=== PATIENT | male | born 1985 | race Caucasian/White ===

== ENCOUNTER 2017-08-07 04:35 | Emergency (ER) | payer SELFPAY ==
[~2017-08-07] VITALS: Ht 177.8 cm; Wt 80.0 kg
[2017-08-07 04:38] VITALS: BP 152/84; PULSE 81; RESP 16; TEMP 98.8; O2SAT 97
--- NOTE | 2017-08-07 05:02 | PD ---
HPI Chief Complaint: ENT Complaint Time Seen by Provider: 04:51 Travel History International Travel<30 days: No Contact w/Intl Traveler<30days: No Traveled to known affect area: No History of Present Illness HPI Patient comes in complaining of sore throat 3 days. Patient reports fever in the beginning has since resolved. Patient states over the past 2 days he's had multiple loose stools that are nonbloody. Patient denies any known sick contacts. Patient using [id number] cold and flu medication as well as drinking hot tea with no improvement of symptoms. Pain is worse with swallowing. Describes pain as burning like in nature. Denies any radiation of the pain. PFSH Past Medical History Medical History: Denies Significant Hx Social History Tobacco Use: No Substance Use: No Allergies-Medications (Allergen,Severity, Reaction): Coded Allergies: No Known Allergies (Unverified , 08/07/17) Reported Meds & Prescriptions Reported Meds & Active Scripts Active Prednisone 20 Mg Tab 20 Mg PO BID 4 Days Review of Systems Except as stated in HPI: all other systems reviewed are Neg Physical Exam Narrative GENERAL: Well-developed, well nourished, in no acute distress, and non-ill appearing. SKIN: Focused skin assessment warm and dry. HEAD: Atraumatic. Normocephalic. EYES: Pupils equal and round. EOMI. No scleral icterus. No injection or drainage. ENT: No nasal bleeding or discharge. Mucous membranes pink and moist. Tympanic membranes pearly saldaña bilaterally. Posterior pharynx nonerythematous without exudate. Uvula is midline. Patient is swallowing saliva and speaking in full sentences without difficulty. No tenderness to facial sinuses to palpation. NECK: Trachea midline. No cervical lymphadenopathy. Supple. No nuclear rigidity. CARDIOVASCULAR: Regular rate and rhythm. No murmur appreciated. RESPIRATORY: No accessory muscle use. No respiratory distress. Clear to auscultation. Breath sounds equal bilaterally. GASTROINTESTINAL: Abdomen soft, non-tender, nondistended, and no guarding. Hepatic and splenic margins not palpable. Normal bowel sounds 4. No pulsatile mass. MUSCULOSKELETAL: No obvious deformities. No clubbing. No cyanosis. No edema. Full range of motion. NEUROLOGICAL: Awake and alert. No obvious cranial nerve deficits. Motor grossly within normal limits. Normal speech. PSYCHIATRIC: Appropriate mood and affect; insight and judgment normal. Data Data Last Documented VS Vital Signs Date Time Temp Pulse Resp B/P (MAP) Pulse Ox O2 Delivery O2 Flow Rate FiO2 08/07/17 06:12 08/07/17 04:38 98.8 81 16 97 Room Air Orders Orders Group A Rapid Strep Screen (08/07/17 04:56) Influenzae A/B Antigen (08/07/17 04:56) Prednisone (Deltasone) (08/07/17 05:15) Strep Culture (Group A) (08/07/17 05:08) Ed Discharge Order (08/07/17 05:48) MDM Medical Decision Making Medical Screen Exam Complete: Yes Emergency Medical Condition: Yes Differential Diagnosis Influenza, viral pharyngitis, strep pharyngitis, viral syndrome Narrative Course Patient looks great, non-ill appearing. The patient is tolerating fluids and is well hydrated. Appears viral pharyngitis with viral symptom complex. No clinical evidence by history or evaluation to suspect meningitis and/or sepsis. There was no evidence to suggest peritonsillar abscess or retropharyngeal abscess. I discussed with the patient, diagnosis, plan of care and to follow up with the patients primary physician. The patient was instructed to return if the worsens in anyway, especially if not tolerating fluids, increased pain or swelling, difficulty swallowing or breathing, or as needed. The patient agreed with plan. Patient in no obvious distress upon re-evaluation. All pertinent laboratory result(s) discussed with patient. Patient was asked if they wanted to speak to my attending, which the patient did not wish to do at this time. Any questions/ concerns in reference to patient diagnosis/condition discussed and clarified prior to patient's discharge. Reinforced sheer importance of close follow up with patient's primary physician or primary care clinic. Instructed patient to return to ED immediately, if symptoms return/worsen. Patient showed understanding of above instructions. Further instructions and recommendations were detailed in discharge paperwork. Patient ambulated without difficulty out of ED at discharge. Diagnosis Primary Impression: Viral pharyngitis Referrals: [facility] Patient Instructions: General Instructions, Pharyngitis (ED) Additional Instructions: Follow-up with your primary care physician in 3-5 days for reevaluation. Take all medication as prescribed. Drink plenty of non-caffeinated nonalcoholic fluids. Return to the emergency department if symptoms get worse. Med/Other Pt SpecificInfo: Prescription(s) given Scripts Prednisone (Prednisone) 20 Mg Tab 20 MG PO BID for 4 Days, #8 TAB 0 Refills Prov: Holly Molina MD 08/07/17 Disposition: 01 DISCHARGE HOME Condition: Braden Hawkins Aug 07, 2017 05:02
[2017-08-07] MEDS ORDERED: predniSONE 20 MG TAB PO ONE (05:15)
[2017-08-07] MEDS ORDERED: PRED20 PO (05:48)
== END 2017-08-07 06:13 | disposition home or self-care (01) ==
LOC: NEPD 04:35
DX: J02.8 Acute pharyngitis due to other specified organisms (principal); R19.7 Diarrhea, unspecified; R50.9 Fever, unspecified
CPT/HCPCS: 86403; 87081; 87804; 87880; 99283; J7512